=== PATIENT | female | born 1970 | race Caucasian/White ===

== ENCOUNTER → 2020-01-31 17:19 | Outpatient (CLI) | payer BC, SELFPAY ==
--- NOTE | ~2020-01-31 | MR_ITS ---
EXAMINATION: MR lumbar spine wo con DATE: 01/31/2020 18:33 INDICATION: Right-sided low back pain. TECHNIQUE: Magnetic resonance imaging (MRI) of the lumbar spine was performed without intravenous con trast. Sequences included sagittal T2-weighted FSE, sagittal T2-weighted FS FSE, sagittal T1-weighted FSE, and axial T2-weighted FSE. COMPARISON: Lumbar spine MRI 03/26/2015 FINDINGS: There are chronic bilateral L5 pars defects. There is 9 mm anterolisthesis of L5 on S1. The re is chronic 2/5 height loss of L5 vertebral body posteriorly. There is severely decreased disc heig ht at L3-L4 and L5-S1 with endplate remodeling. The distal spinal cord signal intensity is normal. Th e conus medullaris is at T12-L1. The following disc levels are specifically discussed: L1-L2: The disc does not extend beyond the endplate margin. There is moderate bilateral facet joint o steoarthritis. There is no neural foraminal stenosis. There is no central canal stenosis. L2-L3: The disc is bulging. There is moderate bilateral facet joint osteoarthritis. There is mild sirisha ateral neural foraminal stenosis. There is mild central canal stenosis. L3-L4: The disc is bulging and has an annular fissure. There is moderate right and mild left facet addy int osteoarthritis. There is moderate right and mild left neural foraminal stenosis. There is mild ce ntral canal stenosis. L4-L5: The disc does not extend beyond the endplate margin. There is moderate right and mild left fac et joint osteoarthritis. There is mild right neural foraminal stenosis. There is no central canal glendy nosis. L5-S1: The disc does not extend beyond the endplate margin. There is mild right and moderate left fac et joint osteoarthritis. There is moderate bilateral neural foraminal stenosis. There is severe centr al canal stenosis. IMPRESSION: 1. Severe lumbar spondylosis, worsened from 03/26/2015. 2. Chronic bilateral L5 pars defects with worsened grade 2 anterolisthesis of L5 on S1. Reviewed, dictated and finalized at location A. IMPRESSION: 1. Severe lumbar spondylosis, worsened from 03/26/2015. 2. Chronic bilateral L5 pars defects with worsened grade 2 anterolisthesis of L 5 on S1.
== END ==
DX: M17.11 Unilateral primary osteoarthritis, right knee (principal); M47.896 Other spondylosis, lumbar region
CPT/HCPCS: 72148